=== PATIENT | female | born 1945 | race Caucasian/White ===

== ENCOUNTER 2017-04-21 10:34 | Day surgery (SDC) | payer MEDICARE ==
[~2017-04-21] VITALS: Ht 157.5 cm; Wt 76.4 kg
--- NOTE | ~2017-04-21 | OP ---
PATIENT NAME: AFSANEH ROBISON MEDICAL RECORD: [id number] :47 LOCATION:[facility] ADMISSION DATE: SURGEON: EILEEN CHAVARRIA DO OPERATION DATE: 04/21/17 PROCEDURE: Esophagogastroduodenoscopy with biopsies. INDICATION: Epigastric pain and heart burn. SCOPE: Geenapp video gastroscope. MEDICATIONS: Propofol 200 milligrams IV per anesthesia. ESTIMATED BLOOD LOSS: Minimal. COMPLICATIONS: None. FINDINGS: Informed consent was given. The patient was made comfortable with the above medication. After reaching an adequate level of sedation by slow IV push, the patient was placed on her left side. The endoscope was then advanced under direct visualization through the mouth to the second portion of the duodenum. The upper, middle, and lower thirds of the esophagus appeared normal. At the gastroesophageal junction there was some mild evidence of LA class A reflux induced esophagitis. The endoscope was advanced beyond the gastroesophageal junction and retroflexed to view the cardia where a small sliding hiatal hernia was present. The entire stomach appeared congested and erythematous. In the antrum and prepyloric region there was some erythema and granularity consistent with gastritis. Random biopsies were obtained from the antrum and incisura. The scope was advanced beyond the pylorus and in the duodenum where the bulb and second portion of the duodenum revealed normal mucosa. There was a periampullary diverticulum present, but the ampulla was visualized. The scope was then withdrawn from the patient. The patient tolerated the procedure well. There were no complications. IMPRESSIONS: 1. LA class A reflux induced esophagitis. 2. Small sliding hiatal hernia. 3. Gastritis, biopsies taken. 4. Gastric polyps in the fundus and body of the stomach. A single polypectomy was performed with cold forceps. 5. Duodenal diverticulum. PLAN/RECOMMENDATIONS: 1. Discharge home when recovery parameters are met. 2. Gastroesophageal reflux disease diet and reflux precautions. 3. Continue current medications including Carafate up to four times a day and a proton pump inhibitor once daily. The proton pump inhibitor dosing should be decreased as tolerated down to 20 milligrams daily. If this is not possible 40 milligrams daily is okay. 4. Periodically assess for discontinuation of decreasing of Carafate and proton pump inhibitor. 5. Follow up with gastroenterology clinic as needed. OPERATIVE REPORT [id number] ROBISON,EILEEN BRUNSON DO CC: [id number] DICTATION DATE: 04/21/17 1500 GLASSWARE DEFECT REPAIRER: DM 04/22/17 1221 [facility] 04/21/17 [place] [id number] [place] [address]
[~2017-04-21 10:34] MED LIST: ADVAIR 100/501 DISK INH; ALBUTEROL2.5 MG/3 M INH; ALENDRONATE SOD35 MG PO; CATAPRES0.3 MG PO; NEURONTIN800 MG PO; PERCOCET 10/3251 TA1 PO; PLAQUENIL200 MG PO; SPIRIVA18 MCG INH; STERAPRED DS 1210 MG PO
[2017-04-21] MEDS ORDERED: HYDROCODONE-APA1 TAB PO (12:32)
[2017-04-21] MEDS ORDERED: GLUCOSAMINE & C1 CAP PO (12:33)
[2017-04-21] MEDS ORDERED: POTASSIUM99 M1 PO (12:34)
[2017-04-21] MEDS ORDERED: CALCIUM 500 + D1 TAB PO (12:34)
[2017-04-21] MEDS ORDERED: PREVACID30 MG PO (12:46)
[2017-04-21] MEDS ORDERED: CARAFATE1 G PO (12:46)
[2017-04-21 12:47] VITALS: BP 158/69; Ht 157.5 cm; Wt 76.4 kg
[2017-04-21 13:11] LABS: BASOPHILS 0.1 % (0-2); EOSINOPHILS 0.1 % (0-7); HEMATOCRIT 39.8 % (36.0-48.0); HEMOGLOBIN 13.1 g/dL (12-16); IMMATURE GRANULOCYTES 1.7 % (0-5); LYMPHOCYTES 10.3 % (15-50); MCH 33.2 pg (26.0-34.0); MCHC 32.9 g/dL (31.0-37.0); MCV 100.8 fL (80.0-100.0); MEAN PLATELET VOLUME 9.7 fL (7.4-10.4); MONOCYTES 6.4 % (2-11); NEUTROPHILS 81.4 % (40-80); PLATELET COUNT 180 10x3/uL (130-400); RBC 3.95 10x6/uL (4.00-5.40); RDW 13.2 % (11.5-14.5); WBC 8.3 10x3/uL (4.8-10.8)
[2017-04-21 13:22] LABS: CALC OSMOLALITY 285 mosm/kg (275-300); CALCIUM 8.7 mg/dL (8.5-10.1); CARBON DIOXIDE 29.7 mmol/L (21.0-32.0); CHLORIDE - SERUM 102 mmol/L (98-107); CREATININE - SERUM 0.8 mg/dL (0.6-1.3); GLUCOSE 150 mg/dL (74-106); POTASSIUM - SERUM 4.2 mmol/L (3.5-5.1); SODIUM 141 mmol/L (136-145); UREA NITROGEN 18 mg/dL (7-18); eGFR NON AFRICAN AMERICAN 75 mL/min (90-120)
--- NOTE | 2017-04-21 18:41 | NUR ---
1410 FULL LIQUID DIET TRAY PROVIDED 1440 PIV DC W/CATHETER TIP INTACT 1450 DC HOME VIA WC WITH PT OWN O2 ESCORTED OUT W/ DRIVING
== END 2017-04-21 14:50 | disposition home or self-care (01) ==
LOC: D.OPS 10:34
PROVIDERS: Anesthesiology
DX: R10.13 Epigastric pain (principal); K44.9 Diaphragmatic hernia without obstruction or gangrene; K29.70 Gastritis, unspecified, without bleeding; K31.7 Polyp of stomach and duodenum; F17.200 Nicotine dependence, unspecified, uncomplicated; I25.10 Atherosclerotic heart disease of native coronary artery without angina pectoris; I10 Essential (primary) hypertension; J44.9 Chronic obstructive pulmonary disease, unspecified; Z01.812 Encounter for preprocedural laboratory examination

== ENCOUNTER 2017-05-22 10:01 | Day surgery (SDC) | payer MEDICARE ==
[~2017-05-22] VITALS: Ht 157.5 cm; Wt 77.3 kg
[~2017-05-22 10:01] MED LIST changes: +CALCIUM 500 + D1 TAB PO; +CARAFATE1 G PO; +GLUCOSAMINE & C1 CAP PO; +HYDROCODONE-APA1 TAB PO; +POTASSIUM99 M1 PO; +PREVACID30 MG PO
[2017-05-22] MEDS ORDERED: CYMBALTA30 MG PO (10:54)
[2017-05-22 10:55] VITALS: BP 127/67; Ht 157.5 cm; Wt 77.3 kg
[2017-05-22 11:14] LABS: HEMATOCRIT 38.8 % (36.0-48.0); MCH 33.3 pg (26.0-34.0); MCHC 33.5 g/dL (31.0-37.0); MCV 99.5 fL (80.0-100.0); MEAN PLATELET VOLUME 9.5 fL (7.4-10.4); RBC 3.9 10x6/uL (4.00-5.40); RDW 13.6 % (11.5-14.5); WBC 12.3 10x3/uL (4.8-10.8)
[2017-05-22 11:30] LABS: ANION GAP 10.9 mmol/L (8-16); CARBON DIOXIDE 31.2 mmol/L (21.0-32.0); CREATININE - SERUM 0.9 mg/dL (0.6-1.3); POTASSIUM - SERUM 4.1 mmol/L (3.5-5.1)
--- NOTE | 2017-05-22 14:27 | NUR ---
1350 DISCHARGE INSTRUCTIONS GIVEN. LINZESS PRESCRIPTION GIVEN. PT HAS NO QUESTIONS OR CONCERNS AT THIS TIME. ESCORTED OUT BY VOLUNTEER.
--- NOTE | 2017-05-23 08:48 | OP ---
PATIENT NAME: AFSANEH ROBISON MEDICAL RECORD: [id number] :49 LOCATION:[facility] ADMISSION DATE: SURGEON: EILEEN CHAVARRIA DO DATE OF OPERATION: 05/22/2017 PROCEDURE: Colonoscopy with polypectomy. INDICATIONS FOR PROCEDURE: Include history of colon polyps, constipation. SCOPE: Olympus video pediatric colonoscope. MEDICATIONS: Propofol 350 mg IV per anesthesia. WITHDRAWAL TIME: Seventeen minutes. PREP QUALITY: Excellent. ESTIMATED BLOOD LOSS: Minimal. COMPLICATIONS: None. FINDINGS: Informed consent was given. The patient was made comfortable with the above medication. After reaching an adequate level of sedation by slow IV push, the patient was placed on her left side. A digital rectal examination was performed and was normal. The endoscope was then advanced under direct visualization through the rectum to the cecum with visualization of the appendiceal orifice and ileocecal valve. The scope was slowly withdrawn and mucosa was carefully examined. In the ascending colon, there were 2 polyps, which were benign-appearing and sessile. They measured approximately 2-4 mm in size. They were both removed using hot forceps in 1 piece and completely retrieved. In the transverse colon, there were 2 polyps, which were benign-appearing and sessile. It measured approximately 2-4 mm in size and were removed using hot forceps in 1 piece and completely retrieved. Retroflexion was performed in the rectum with visualization of small nonbleeding internal hemorrhoids. The endoscope was then withdrawn from the patient. The patient tolerated the procedure well and there were no complications. IMPRESSION: 1. Four separate polyps as described above. All were removed with hot forceps. 2. Small nonbleeding internal hemorrhoids. PLAN AND RECOMMENDATIONS: 1. Discharge home when recovery parameters are met. 2. Follow up biopsy specimen results. 3. Continue current medications. 4. High fiber diet. 5. Trial of Linzess 290 mcg daily for chronic idiopathic constipation. 6. Recall colonoscopy in 3 years based on likely tubular adenomas, total in 4. TRANSINT:[id number] Voice Confirmation ID: [id number] DOCUMENT ID: [id number] OPERATIVE REPORT [id number] AFSANEH ROBISON EILEEN CHAVARRIA DO at 0848 CC: [id number] DICTATION DATE: 05/22/17 1258 THEATRE INSTRUCTOR: 05/22/17 1454 [facility] 05/22/17 [facility] [address] [place] [address]
== END 2017-05-22 13:50 | disposition home or self-care (01) ==
LOC: D.OPS 10:01
PROVIDERS: Anesthesiology
DX: D12.2 Benign neoplasm of ascending colon (principal); D12.3 Benign neoplasm of transverse colon; F17.200 Nicotine dependence, unspecified, uncomplicated; I10 Essential (primary) hypertension; M19.90 Unspecified osteoarthritis, unspecified site; Z01.812 Encounter for preprocedural laboratory examination

== ENCOUNTER 2017-07-05 11:31 | Emergency (ER) | payer MEDICARE ==
[2017-05-22 10:55] VITALS: BMI 31.1
[~2017-07-05 11:31] MED LIST changes: +CYMBALTA30 MG PO
== END 2017-07-05 13:31 | disposition home or self-care (01) ==
LOC: D.ER 11:31
DX: S42.301A Unspecified fracture of shaft of humerus, right arm, initial encounter for closed fracture (principal); W01.0XXA Fall on same level from slipping, tripping and stumbling without subsequent striking against object, initial encounter; Y93.89 Activity, other specified; Y92.029 Unspecified place in mobile home as the place of occurrence of the external cause; J44.9 Chronic obstructive pulmonary disease, unspecified; M32.9 Systemic lupus erythematosus, unspecified

== ENCOUNTER 2017-07-07 10:51 | Emergency (ER) | payer MEDICARE ==
[2017-05-22 10:55] VITALS: BMI 31.1
== END 2017-07-07 14:23 | disposition home or self-care (01) ==
LOC: D.ER 10:51
DX: S42.201A Unspecified fracture of upper end of right humerus, initial encounter for closed fracture (principal); W01.0XXA Fall on same level from slipping, tripping and stumbling without subsequent striking against object, initial encounter; Y93.89 Activity, other specified; Y92.029 Unspecified place in mobile home as the place of occurrence of the external cause; F17.200 Nicotine dependence, unspecified, uncomplicated; J44.9 Chronic obstructive pulmonary disease, unspecified; M32.9 Systemic lupus erythematosus, unspecified

== ENCOUNTER → 2017-09-08 13:00 | Outpatient (CLI) | payer MEDICARE ==
[2017-05-22 10:55] VITALS: BMI 31.1
[2017-09-08 14:24] LABS: ANION GAP 13.2 mmol/L (8-16); CALCIUM 9.6 mg/dL (8.5-10.1); CARBON DIOXIDE 29.4 mmol/L (21.0-32.0); CREATININE - SERUM 1.2 mg/dL (0.6-1.3); POTASSIUM - SERUM 4.6 mmol/L (3.5-5.1)
[2017-09-09 08:16] LABS: IMMUNOGLOBULIN E 169 IU/mL (0-100)
--- NOTE | 2017-09-10 13:23 | EC ---
PATIENT:AFSANEH ROBISON DATE OF SERVICE: 09/08/17 SEX: F MEDICAL RECORD: [id number] DATE OF : [birth year] LOCATION:[facility] AGE OF PATIENT: 72 ADMISSION DATE: 09/08/17 REFERRING PHYSICIAN: INTERPRETING PHYSICIAN: YANELY BARONE MD ECHOCARDIOGRAM REPORT ECHO CHARGES 4 ECHO COMPLETE CLINICAL DIAGNOSIS: COPD ECHOCARDIOGRAPHIC MEASUREMENTS (adult normal given) AC root (d.<3.7cm) 3.0 cm LV Septum d (<1.2 cm> 2.1 cm Valve Excursion 1.7 cm LV Septum (systole) 2.6 cm Left Atria (s.<4.0cm> 3.7 cm LVPW d(<1.2cm) 1.8 cm RV (d.<2.3cm) 2.4 cm LVPW (sytole) 2.4 cm LV diastole(<5.6CM) 4.5 cm MV E-F(>70mm/sec) cm LV systole 2.1 cm LVOT Diameter 1.7 cm MV exc.(>10mm) cm Est.ejection fraction (50-75%) % Pericardial Effusion N DOPPLER: LVIT cm/sec A 100 cm/sec E 61.0 cm/sec LA cm/sec RVSP 28.0 mmHg LVOT 107 cm/sec AOP1/2T m/s Asc. Ao 173 cm/sec RVOT 78.0 cm/sec RA cm/sec PA 125 cm/sec AV Gradient Peak 12.0 mmHg AV Mean 6.0 mmHg AV Area 1.5 cm MV Gradient Peak 6.1 mmHg MV Mean 2.1 mmHg MV Area cm COMMENTS: Physical Scientist: Sandrine WEBBOE Guide Plant: 3 Dr. Zelaya TAPE# PACS DATE OF SERVICE: 09/08/2017 Adequate 2D echo, color flow, spectral Doppler and M-Mode. Borderline LVH. LV internal dimensions are normal. Wall motion is normal. EF is greater than 55%. Aortic valve is tricuspid. There is some sclerosis present; however, there is no evidence of stenosis with good valve excursion. Left atrium is normal. Mitral valve shows no prolapse. Mild MR. Right-sided chambers are grossly normal. Mild TR by color flow imaging. TRANSINT:[id number] Voice Confirmation ID: [id number] DOCUMENT ID: [id number] ECHOCARDIOGRAM REPORT [id number] AFSANEH ROBISON GREGORY A MD at 1323 CC: [id number] DICTATION DATE: 09/09/17 0747 DRAFTER DETAIL: 09/09/17 1036 DEP CLI 09/08/17 [place] [address] [place] [id number]
== END | disposition home or self-care (01) ==
LOC: D.ECHO 13:00
PROVIDERS: Internal Medicine Pulmonary Disease
DX: J44.9 Chronic obstructive pulmonary disease, unspecified (principal)

== ENCOUNTER → 2017-12-04 09:42 | Outpatient (CLI) | payer MEDICARE ==
[2017-05-22 10:55] VITALS: BMI 31.1
== END | disposition home or self-care (01) ==
LOC: D.LAB 09:42 → D.CT 10:30
DX: R06.00 Dyspnea, unspecified (principal); R60.0 Localized edema

== ENCOUNTER → 2017-12-31 12:37 | Outpatient (CLI) | payer MEDICARE ==
[2017-05-22 10:55] VITALS: BMI 31.1
== END | disposition home or self-care (01) ==
LOC: D.RAD 12:37
DX: T17.928A Food in respiratory tract, part unspecified causing other injury, initial encounter (principal)

== ENCOUNTER → 2018-07-27 13:58 | Outpatient (CLI) | payer MEDICARE ==
[2017-05-22 10:55] VITALS: BMI 31.1
== END | disposition home or self-care (01) ==
LOC: D.RT 13:58
DX: J44.9 Chronic obstructive pulmonary disease, unspecified (principal)

== ENCOUNTER → 2019-04-21 15:15 | Outpatient (CLI) | payer MEDICARE ==
[2017-05-22 10:55] VITALS: BMI 31.1
== END | disposition home or self-care (01) ==
LOC: D.RT 04-12 09:00
PROVIDERS: ATTEND Internal Medicine Pulmonary Disease
DX: J44.9 Chronic obstructive pulmonary disease, unspecified (principal)

== ENCOUNTER → 2019-04-27 16:21 | Outpatient (CLI) | payer MEDICARE ==
[2017-05-22 10:55] VITALS: BMI 31.1
[~2019-04-27 16:21] MED LIST changes: +COREG 3.1253.125 MG PO; +ELIQUIS5 MG PO; +GLUCOPHAGE500 MG PO; +KLONOPIN1 MG PO; +LANTUS SOL100 UNIT/1 SC; +LASIX40 MG PO; +NEXIUM40 MG PO; +PREDNISONE10 MG PO; +TAPAZOLE 5 MG TA5 MG PO
[2019-04-27 16:30] LABS: BASOPHILS 0.2 % (0-2); EOSINOPHILS 0.9 % (0-7); HEMOGLOBIN 14.1 g/dL (12-16); LYMPHOCYTES 25.4 % (15-50); MCH 32.7 pg (26.0-34.0); MCHC 33.6 g/dL (31.0-37.0); MCV 97.4 fL (80.0-100.0); MEAN PLATELET VOLUME 9.9 fL (7.4-10.4); MONOCYTES 7.4 % (2-11); NEUTROPHILS 64.1 % (40-80); RBC 4.31 10x6/uL (4.00-5.40); RDW 13.7 % (11.5-14.5); WBC 13.2 10x3/uL (4.8-10.8)
[2019-04-27 16:37] LABS: PLATELET COUNT 257 10x3/uL (130-400)
[2019-04-27 16:44] LABS: ALBUMIN 3.8 g/dL (3.4-5.0); ANION GAP 14.9 mmol/L (8-16); BILIRUBIN - TOTAL 0.44 mg/dL (0.2-1.3); CARBON DIOXIDE 29.4 mmol/L (21.0-32.0); CREATININE - SERUM 1.1 mg/dL (0.6-1.3); POTASSIUM - SERUM 4.3 mmol/L (3.5-5.1); PROTEIN - SERUM 7.2 g/dL (6.4-8.2)
== END | disposition home or self-care (01) ==
LOC: D.LABREF 16:21
PROVIDERS: ATTEND Internal Medicine Pulmonary Disease
DX: J18.9 Pneumonia, unspecified organism (principal)

== ENCOUNTER → 2019-05-11 13:40 | Outpatient (CLI) | payer MEDICARE ==
[2017-05-22 10:55] VITALS: BMI 31.1
[~2019-05-11 13:40] MED LIST changes: -COREG 3.1253.125 MG PO; -ELIQUIS5 MG PO; -GLUCOPHAGE500 MG PO; -KLONOPIN1 MG PO; -LANTUS SOL100 UNIT/1 SC; -LASIX40 MG PO; -NEXIUM40 MG PO; -PREDNISONE10 MG PO; -TAPAZOLE 5 MG TA5 MG PO
== END | disposition home or self-care (01) ==
LOC: D.RAD 11:45
PROVIDERS: ATTEND Internal Medicine Pulmonary Disease
DX: J18.9 Pneumonia, unspecified organism (principal); J44.9 Chronic obstructive pulmonary disease, unspecified

== ENCOUNTER 2019-06-28 15:00 | Inpatient (IN) | payer MEDICARE, MEDICAID ==
[~2019-06-28] VITALS: Ht 157.5 cm; Wt 74.5 kg
[2019-06-28] MEDS ORDERED: NEXIUM40 MG PO (15:22)
[2019-06-28 15:46] LABS: BASOPHILS 0.1 % (0-2); EOSINOPHILS 0.2 % (0-7); HEMATOCRIT 41.9 % (36.0-48.0); HEMOGLOBIN 14.1 g/dL (12-16); LYMPHOCYTES 17.4 % (15-50); MCH 32.3 pg (26.0-34.0); MCHC 33.7 g/dL (31.0-37.0); MCV 96.1 fL (80.0-100.0); MEAN PLATELET VOLUME 10.1 fL (7.4-10.4); MONOCYTES 5.6 % (2-11); NEUTROPHILS 75.7 % (40-80); RBC 4.36 10x6/uL (4.00-5.40); RDW 13.2 % (11.5-14.5); WBC 13.3 10x3/uL (4.8-10.8)
[2019-06-28 15:49] LABS: PLATELET COUNT 179 10x3/uL (130-400)
[2019-06-28 16:08] LABS: ALBUMIN 3.4 g/dL (3.4-5.0); ALKALINE PHOSPHATASE 113 U/L (46-116); ALT (SGPT) 20 U/L (10-68); BILIRUBIN - TOTAL 0.51 mg/dL (0.2-1.3); CALC OSMOLALITY 293 mosm/kg (275-300); CALCIUM 8.8 mg/dL (8.5-10.1); CARBON DIOXIDE 31.2 mmol/L (21.0-32.0); CHLORIDE - SERUM 98 mmol/L (98-107); CREATININE - SERUM 1.4 mg/dL (0.6-1.3); POTASSIUM - SERUM 4.4 mmol/L (3.5-5.1); PROTEIN - SERUM 6.7 g/dL (6.4-8.2); SODIUM 138 mmol/L (136-145); UREA NITROGEN 26 mg/dL (7-18); eGFR NON AFRICAN AMERICAN 39 mL/min (90-120)
[2019-06-28 16:09] LABS: GLUCOSE 325 mg/dL (74-106)
[2019-06-28 16:19] LABS: CREATINE KINASE 71 UL (21-215); TROPONIN-I < 0.017 ng/mL (0.000-0.060)
--- NOTE | 2019-06-28 18:58 | NUR ---
REPORT TO LORI ADAMS
[2019-06-28 19:37] LABS: INR 0.91 (0.85-1.17); PROTIME 11.8 SECONDS (11.6-15.0)
[2019-06-28 19:38] LABS: APTT 25.8 SECONDS (22.8-39.4)
--- NOTE | 2019-06-28 19:45 | NUR ---
PT POST CATH LAYING FLAT IN BED WITH TIME ENDING AT 2200. DRESSING TO LEFT FEMORAL C/D/I WITH NO NODULES FELT. PT IS RUNNING 74 CONTROLLED A-FIBB ON TELEMETRY. NORMAL SALINE GOING AT 100ML/HR. NO S/S OF DISTRESS. VITALS STABLE AT THIS TIME. BED LOW CALL LIGHT WITHIN REACH. WILL CONTINUE TO MONITOR.
--- NOTE | 2019-06-28 20:35 | NUR ---
RECIEVED REPORT FROM ANGIE SANDOVAL IN ER. PT ARRIVED TO FLOOR VIA STRECHER FROM ER. PT ALERT AND ORIENTED X4. PT ARRIVED ON 3L O2-98%. PT PLACED ON TELE-109 ST. GAVE PT TURKEY RJWHICH. NO S/S OF DISTRESS AT THIS TIME. PT DENIES ANY PAIN OR FURTHER NEEDS AT THIS TIME. FAMILY AT BEDSIDE. BED LOW CALL LIGHT WITHIN REACH. FALL PERCAUTIONS IN PLACE. WILL CONTINUE TO MONITOR.
[2019-06-28] MEDS ORDERED: LASIX40 MG PO ×2 (20:57)
[2019-06-28] MEDS ORDERED: KLONOPIN1 MG PO (21:06)
[2019-06-29] VITALS: BP 129/64
[2019-06-29 04:31] VITALS: BP 145/81; BMI 30.4
[2019-06-29 05:49] LABS: BASOPHILS 0.3 % (0-2); EOSINOPHILS 1.1 % (0-7); HEMOGLOBIN 12.7 g/dL (12-16); IMMATURE GRANULOCYTES 1.3 % (0-5); LYMPHOCYTES 29.6 % (15-50); MCH 31.9 pg (26.0-34.0); MCHC 33.4 g/dL (31.0-37.0); MCV 95.5 fL (80.0-100.0); MEAN PLATELET VOLUME 10.7 fL (7.4-10.4); MONOCYTES 8.7 % (2-11); PLATELET COUNT 154 10x3/uL (130-400); RBC 3.98 10x6/uL (4.00-5.40); RDW 13.3 % (11.5-14.5)
[2019-06-29 06:03] LABS: WBC 8.7 10x3/uL (4.8-10.8)
[2019-06-29 06:55] LABS: ALBUMIN 3.1 g/dL (3.4-5.0); ALKALINE PHOSPHATASE 95 U/L (46-116); ALT (SGPT) 16 U/L (10-68); BILIRUBIN - TOTAL 0.59 mg/dL (0.2-1.3); CALCIUM 8.6 mg/dL (8.5-10.1); CARBON DIOXIDE 29.9 mmol/L (21.0-32.0); CHLORIDE - SERUM 97 mmol/L (98-107); MAGNESIUM - SERUM 1.9 mg/dL (1.8-2.4); PHOSPHOROUS 3.5 mg/dL (2.5-4.9); POTASSIUM - SERUM 3.8 mmol/L (3.5-5.1); PROTEIN - SERUM 5.9 g/dL (6.4-8.2); SODIUM 135 mmol/L (136-145); UREA NITROGEN 22 mg/dL (7-18)
[2019-06-29 06:56] LABS: CALC OSMOLALITY 278 mosm/kg (275-300); CREATININE - SERUM 0.9 mg/dL (0.6-1.3); GLUCOSE 202 mg/dL (74-106); TROPONIN-I < 0.017 ng/mL (0.000-0.060); eGFR NON AFRICAN AMERICAN 65 mL/min (90-120)
--- NOTE | 2019-06-29 07:15 | NUR ---
REPORT RECEIVED. WILL CONTINUE WITH POC. PT CURRENTLY LYING SEMI FOWLERS. CALL LIGHT W/I REACH. PT IS RESTING AT THIS TIME. RR EVEN AND UNLABORED ON 2L 02. NS INFUSING @50ML/HR VIA R.FOR PIV. NO S/S OF DISTRESS NOTED. PT DENIES ANY NEEDS. WILL CTM.
[2019-06-29 08:00] VITALS: BP 129/75
[2019-06-29] MEDS ORDERED: PREDNISONE10 MG PO (08:38)
--- NOTE | 2019-06-29 08:41 | NUR ---
VERIFIED MED REQ WITH PT WHO STATED "VERONA BEEN TAKING PREDNISONE SINCE 1997, EVERYDAY." UPDATED MED REQ.
--- NOTE | 2019-06-29 10:51 | NUR ---
I have reviewed this patient and I concur with the Shift Assessment completed by the Licensed Practical Nurse today this shift.
[2019-06-29 12:24] VITALS: BP 123/79
[2019-06-29 16:19] VITALS: BP 134/77
--- NOTE | 2019-06-29 17:38 | MORECARE ---
CASE MANAGEMENT DISCHARGE SUMMARY PATIENT: AFSANEH ROBISON UNIT: [id number] ADM DATE: 06/28/19 AGE: 73 : 47 SEX: F ROOM/BED: D.2131 AUTHOR: GERONIMO LAN PHYSICIAN: REFERRING PHYSICIAN: JESSENIA BELL MD DATE OF SERVICE: 06/29/19 Discharge Plan Patient Name: AFSANEH ROBISON Facility: [facility]:[place] : 1945 Planned Disposition: Home with Home Health Anticipated Discharge Date: Discharge Date: Expected LOS: Initial Reviewer: [email or web address] Initial Review Date: 06/29/2019 Generated: 06/29/19 6:37 pm DCPIA - Discharge Planning Initial Assessment Updated by [email or web address]: Telly Wiseman on 06/29/19 5:35 pm * Is the patient Alert and Oriented? Yes * How many steps to enter\exit or inside your home? * PCP DR. YANELY SIMON AT [facility] * Pharmacy [facility] * Preadmission Environment Home with Family * ADLs Independent * Equipment Cane Nebulizer Oxygen Rolling Walker Shower Chair * Other Equipment PORTABLE OXYGEN CONCENTRATOR APRIA - PROVIDER * List name and contact numbers for known caregivers / representatives who currently or will assist patient after discharge: JOURDAN LAM DTR, GOPAL ROBIOSN, SPOUSE, * Verbal permission to speak to the caregivers and representatives has been obtained from the patient. Yes * Community resources currently utilized None * Please name any agencies selected above. NONE * Additional services required to return to the preadmission environment? Yes * Can the patient safely return to the preadmission environment? Yes * Has this patient been hospitalized within the prior 30 days at any hospital? No Patient Name: AFSANEH ROBISON Page [phone] at 1738 All edits/amendments must be made on the electronic document DICTATION DATE: 06/29/191736 3RD PRESSMAN: VIKASH 06/29/191736 RPT#: [id number] DC DATE: STATUS: ADM IN [facility] [address] [place] [address] END OF REPORT
[2019-06-29 17:40] LABS: APPEARANCE CLEAR (CLEAR); BILIRUBIN NEGATIVE (NEGATIVE); COLOR YELLOW (YELLOW); GLUCOSE 1000 mg/dL (NEGATIVE); KETONE NEGATIVE (NEGATIVE); NITRITE NEGATIVE (NEGATIVE); PROTEIN NEGATIVE (NEGATIVE); SPECIFIC GRAVITY 1.015 (1.005-1.020); UROBILINOGEN NORMAL (NORMAL)
--- NOTE | 2019-06-29 17:48 | MORECARE ---
CASE MANAGEMENT DISCHARGE SUMMARY PATIENT: AFSANEH ROBISON UNIT: [id number] ADM DATE: 06/28/19 AGE: 73 : 47 SEX: F ROOM/BED: D.4035 AUTHOR: GERONIMO LAN PHYSICIAN: REFERRING PHYSICIAN: JESSENIA BELL MD DATE OF SERVICE: 06/29/19 Discharge Plan Patient Name: AFSANEH ROBISON Facility: [facility]:[place] : 1945 Planned Disposition: Home with Home Health Anticipated Discharge Date: Discharge Date: Expected LOS: Initial Reviewer: [email or web address] Initial Review Date: 06/29/2019 Generated: 06/29/19 6:47 pm Comments DCP- Discharge Planning Updated by [email or web address]: Telly Wiseman on 06/29/19 4:[address] Patient Name: AFSANEH ROBISON Admission Status: ER Accout number: [id number] Admission Date: 06-28-2019 : 1945 Admission Diagnosis: Attending: JESSENIA BELL Current LOS: 1 Anticipated DC Date: Planned Disposition: Home with Home Health Primary Insurance: [facility] MEDICARE SOLUTIONS PLANNED EXTERNAL PROVIDER: [facility] Discharge Planning Comments: CM RECEIVED ORDER FOR POSSIBLE NEED OF ADAPTIVE EQUIPMENT. CM MET WITH PT, SPOUSE AND DAUGHTER IN ROOM TO DISCUSS DISCHARGE PLANNING AND NEEDS. AFSANEH ROBISON provided verbal consent to discuss current and ongoing needs with/in the presence of: SPOUSE AND DAUGHTER. PT REPORTS LIVING AT HOME INDEPENDENTLY WITH HER SPOUSE, ALSO IN THE HOMEH IS ADULT DAUGHTER. PT HASCANE, ROLLATOR WALKER, TUB SEAT, NEBULIZER AND PORTABLE OXYGEN CONCENTRATOR FROM [employer]. PT HAS NO OUTSIDE SERVICES ASSISTING IN THE HOME. CM DISCUSSED AVAILABILITY OF HOME HEALTH, REHAB SERVICES AND MEDICAL EQUIPMENT. PT AND FAMILY DECLINE REHAB PLACEMENT. PT'S DAUGHER AND SPOUSE REPORT ABILITY TO CONTINUE TO CARE FOR PT AT HOME. PT AND FAMILY WOULD LIKE A WHEELCHAIR FOR PATIENT. CM REVIEWED PHYSICAL THERAPY EVALUATION AND NOTES, INFORMED PT AND FAMILY THAT THERAPY IS NOT RECOMMENDING WHEELCHAIR AND THAT INSURANCE WOULD NEED RECOMMENDATION FROM TREATMENT TEAM FOR WHEELCHAIR AND THAT THE CHART NOTES HAD TO DETAIL THE MEDICAL NEED FOR INSURANCE TO PAY. PT AND FAMILY REPORT UNDERSTANDING. THEY WANT HOME HEALTH FOR PHYSICAL THERAPY; CHOICE LISTING REVIEWED, FAMILY AND PT REQUEST [facility] WITH NO PROVIDER PREFERENCE SECOND CHOICE. CHOICE SABRINA.D PT REPORTS HER SPOUSE WILL PICK HER UP FOR DISCHARGE HOME. PT DECLINED REHAB PLACEMENT, PLANS TO RETURN HOME WITH FAMILY, REQUESTED HOME HEALTH WITH PHYSICAL THERAPY. CM TO [facility]RANGE [facility] WITH PHYSICIAN AGREEMENT AND ORDERS. CM TO CONTINUE TO FOLLOW AND ASSIST IF NEEDED. DISCHARGE ADDRESS IS [address] [place] [address], [place]. [address]. Field Crop Farmworker: Telly Wiseman DCPIA - Discharge Planning Initial Assessment Updated by [id number]: Telly Wiseman on 06/29/19 5:35 pm * Is the patient Alert and Oriented? Yes * How many steps to enter\exit or inside your home? * PCP DR. YANELY SIMON AT [facility] * Pharmacy [facility] * Preadmission Environment Home with Family * ADLs Independent * Equipment Cane Nebulizer Oxygen Rolling Walker Shower Chair * Other Equipment PORTABLE OXYGEN CONCENTRATOR [employer]IA - PROVIDER * List name and contact numbers for known caregivers / representatives who currently or will assist patient after discharge: JOURDAN LAM DTR, GOPAL ROBISON, SPOUSE, * Verbal permission to speak to the caregivers and representatives has been obtained from the patient. Yes * Community resources currently utilized None * Please name any agencies selected above. NONE * Additional services required to return to the preadmission environment? Yes * Can the patient safely return to the preadmission environment? Yes * Has this patient been hospitalized within the prior 30 days at any hospital? No Coverage Notice Reviewer: [email or web address] - Telly Wiseman Notice Issued Date-Time: 06/29/2019 16:20 Notice Type: Patient Choice Letter Notice Delivered To: Patient Relationship to Patient: Academic Affairs Specialist Name: Delivery Method: HAND - Hand Delivered Carlota Days: Prior Verbal Notification: Recipient Understood Notice: Yes Recipient Signature: Yes Med Rec Note Co-signed by Attending: Coverage Notice Comment: 1- [facility] , 2- NO C PROVIDER PREFERENCE Last DP export: 06/29/19 4:38 p Patient Name: AFSANEH ROBISON Page 38542 at 8477 All edits/amendments must be made on the electronic document DICTATION DATE: 06/29/191746 THRESHER BROOMCORN: DM 06/29/191746 RPT#: [id number] DC DATE: STATUS: ADM IN [facility] [address] [place] [address] END OF REPORT
--- NOTE | 2019-06-29 19:31 | NUR ---
REPORT RECIEVED AND ROUNDING COMPLETE. DAUGHTER AT BEDSIDE. PATIENT HAS A RIGHT FOREARM PIV THAT IS RUNNING NORMAL SALINE. PATIENT'S PIV HAS A BLOODY TEGADERM, ASKED PATIENT IF I COULD CHANGE IT AND CLEAN IT UP AND SHE STATED SHE PERFERS I LEAVE IT ALONE BECAUSE SHE WOULD HATE FOR ME TO PULL IT OUT. PATIENT ASKED FOR PAIN MEDICATIONS, TREATED PER MAR. PATIENT STATES SHE HAS GENERALIZED PAIN. PATIENT STATES SHE HAS NO OTHER NEEDS AT THIS. PATIENT IS NOT SHOWING ANY S/SX OF DISTRESS AT THIS TIME. CALL LIGHT WITHIN REACH AND BED IN LOWEST LOCKED POSITION.
[2019-06-29 20:15] VITALS: BP 113/51
[2019-06-30 00:02] VITALS: BP 177/92
--- NOTE | 2019-06-30 04:33 | NUR ---
I have reviewed this patient and I concur with the Shift Assessment completed by the Licensed Practical Nurse today this shift.
[2019-06-30 06:43] LABS: BASOPHILS 0.3 % (0-2); HEMATOCRIT 37.3 % (36.0-48.0); HEMOGLOBIN 12.3 g/dL (12-16); IMMATURE GRANULOCYTES 1.8 % (0-5); LYMPHOCYTES 30.7 % (15-50); MCH 31.6 pg (26.0-34.0); MCV 95.9 fL (80.0-100.0); MEAN PLATELET VOLUME 10.4 fL (7.4-10.4); MONOCYTES 10.1 % (2-11); NEUTROPHILS 56.1 % (40-80); PLATELET COUNT 138 10x3/uL (130-400); RBC 3.89 10x6/uL (4.00-5.40); RDW 13.4 % (11.5-14.5)
[2019-06-30 06:46] LABS: CALCIUM 8.3 mg/dL (8.5-10.1); CARBON DIOXIDE 34.7 mmol/L (21.0-32.0); CHLORIDE - SERUM 101 mmol/L (98-107); CREATININE - SERUM 0.8 mg/dL (0.6-1.3); SODIUM 141 mmol/L (136-145); eGFR NON AFRICAN AMERICAN 75 mL/min (90-120)
[2019-06-30 06:49] LABS: WBC 6.1 10x3/uL (4.8-10.8)
[2019-06-30 06:58] LABS: CALC OSMOLALITY 284 mosm/kg (275-300); GLUCOSE 152 mg/dL (74-106); UREA NITROGEN 15 mg/dL (7-18)
[2019-06-30 08:45] VITALS: BP 126/67
--- NOTE | 2019-06-30 10:42 | NUR ---
PT STATING SHE HAS "A COLD AND NOSE IS STOPPED UP." I VERBALIZED UNDERSTANDING AND STATED I WOULD CALL FLOR VENTURA. CALLED AND SPOKE WITH FLOR VENTURA THAT PT IS WANTING SOMETHING FOR THIS AND SHE VERBALIZED UNDERSTANDING.
--- NOTE | 2019-06-30 11:08 | NUR ---
PT UP WALKING WIHT PHYSICAL THERAPY WIHT WALKER.
--- NOTE | 2019-06-30 11:31 | NUR ---
WILL DO INSULIN TEACHING WITH PT AND PT'S DAUGHTER AT 1630 AND WILL GIVE HANDOUTS. PT'S DAUGHTER NOT AT BEDSIDE AT 1130 ADMINISTRATION AND PT IS FORGETFUL.
--- NOTE | 2019-06-30 11:32 | NUR ---
PT NOT PRODUCING SPUTUM. UNABLE TO COLLECT RESPIRATORY CULTURE.
[2019-06-30 11:45] VITALS: BP 147/80
--- NOTE | 2019-06-30 11:56 | NUR ---
STILL WAITING ON PHARMACRY TO BRING VIOLETE.
--- NOTE | 2019-06-30 12:16 | NUR ---
I have reviewed this patient and I concur with the Shift Assessment completed by the Licensed Practical Nurse today this shift.
--- NOTE | 2019-06-30 13:32 | NUR ---
THIS NURSE CAME BACK FROM BREAK AND THIS NURSE OVERHEAD PT'S DAUGHTER SPEAKING WITH FLIGHT OPERATIONS SPECIALIST STATING "SHE'S(THIS NURSE) ISN'T EVEN TAKING CARE OF MY MOM. SHE IS DOING NOTHING FOR HER HEADACHE. I AM GOING TO REPORT HER!!" I CALLED NEWS CORRESPONDENT BERT AND MARCELINA RN NURSE REGIONAL CLINICAL RESEARCH ASSOCIATE AND STATED TO THEM THE SITAUTION AND THAT PT HAS ALREADY HAD HYDROCODNE THIS AM AND I GAVE PT TYLENOL BEFORE I WENT ON BREAK FOR PT'S HEADACHE AND SHE WAS NOT IN THE ROOM. THEY BOTH VERBALIZED UNDERSTANDING. MARCELINA ADAMS STATES SHE WILL SPEAK WITH PT AND HER DAUGHTER WHEN SHE MAKES ROUNDS.I WENT INTO PT'S ROOM AND THE DAUGHTER WAS NOT THERE AND SPOKE WITH PT AND ASK WHAT WAS GOING ON AND IF SHE IS UPSET AND SHE STATES NO. I ASKED IF HER HEAD WAS STILL HURTING AND SHE STATES HER PAIN LEVEL IS 12 NOW AND IS WORSE. I ASKED WHERE AT EXACTLY ON SHE SAID THE TOP FRONT PART OF HER HEAD AND THAT IT IS ACHING AND POUNDING. I VERBALIZED UNDERSTANDING AND STATED I WILL CALL MD ABOUT THIS. PT VERBALIZED UNDERSTANDING. CALLED AND SPOKE WITH FLOR VENTURA AND SHE STATES TO CALL AND SPEAK WITH DR. BELL. CALLED DR. BELL AND LEFT A VOICEMAIL. IT WAS STATED TO ME DR. BELL IS IN ICU. I CALLED ICU AND ASKED TO SPEAK WITH DR. BELL THEY STATED TO ME DR. BELL STUFF IS THERE BUT HE IS NOT. WILL AWAIT A RETURNED CALL.
--- NOTE | 2019-06-30 13:58 | NUR ---
SPOKE WITH PT'S DAUGHTER ABOUT SITUATION AND THAT I HAVE SEEN HER MOTHER BUT SHE WAS NOT IN THE ROOM WHEN I HAVE AND I ALSO STATED TO HER THAT I AM WAITING A CALL BACK FROM THE DOCTOR. SHE STATES I LEFT HER MOM ON THE SIDE OF THE BED. WHICH I DID NOT. THE DAUGHTER AND CABIN EQUIPMENT SUPERVISOR LEFT ROOM AND WHEN I WENT IN PT'S ROOM SHE WAS ALREADY SITTING ON SIDE OF BED. PT DID NOT REQUEST TO BE MOVED FROM SIDE OF BED. DAUGHTER WOULD NOT LET ME TELL HER THIS AND KEPT CUTTING ME OFF. MARCELINA ADMAS TO SPEAK WITH PT'S DAUGHTER.
--- NOTE | 2019-06-30 14:03 | MORECARE ---
CASE MANAGEMENT DISCHARGE SUMMARY PATIENT: AFSANEH ROBISON UNIT: [id number] ADM DATE: 06/28/19 AGE: 73 : 47 SEX: F ROOM/BED: D.2133 AUTHOR: GERONIMO LAN PHYSICIAN: REFERRING PHYSICIAN: JESSENIA BELL MD DATE OF SERVICE: 06/30/19 Discharge Plan Patient Name: AFSANEH ROBISON Facility: [facility]:[place] : 1945 Planned Disposition: Home with Home Health Anticipated Discharge Date: Discharge Date: Expected LOS: Initial Reviewer: [email or web address] Initial Review Date: 06/29/2019 Generated: 06/30/19 3:02 pm Comments DCP- Discharge Planning Updated by [email or web address]: Anu Thomson on 06/30/19 12:[address] Patient Name: AFSANEH ROBISON Admission Status: ER Accout number: [id number] Admission Date: 06-28-2019 : 1945 Admission Diagnosis: Attending: JESSENIA BELL Current LOS: 2 Anticipated DC Date: Planned Disposition: Home with Home Health Primary Insurance: [facility] MEDICARE SOLUTIONS Discharge Planning Comments: REFERRAL FAXED TO [facility]. Preschool Aide: Anu Thomson DCP- Discharge Planning Updated by [email or web address]: Telly Wiseman on 06/29/19 4:[address] Patient Name: AFSANEH ROBISON Admission Status: ER Accout number: [id number] Admission Date: 06-28-2019 : 1945 Admission Diagnosis: Attending: JESSENIA BELL Current LOS: 1 Anticipated DC Date: Planned Disposition: Home with Home Health Primary Insurance: [facility] MEDICARE SOLUTIONS PLANNED EXTERNAL PROVIDER: [facility] Discharge Planning Comments: CM RECEIVED ORDER FOR POSSIBLE NEED OF ADAPTIVE EQUIPMENT. CM MET WITH PT, SPOUSE AND DAUGHTER IN ROOM TO DISCUSS DISCHARGE PLANNING AND NEEDS. AFSANEH ROBISON provided verbal consent to discuss current and ongoing needs with/in the presence of: SPOUSE AND DAUGHTER. PT REPORTS LIVING AT HOME INDEPENDENTLY WITH HER SPOUSE, ALSO IN THE HOMEH IS ADULT DAUGHTER. PT HASCANE, ROLLATOR WALKER, TUB SEAT, NEBULIZER AND PORTABLE OXYGEN CONCENTRATOR FROM [employer]. PT HAS NO OUTSIDE SERVICES ASSISTING IN THE HOME. CM DISCUSSED AVAILABILITY OF HOME HEALTH, REHAB SERVICES AND MEDICAL EQUIPMENT. PT AND FAMILY DECLINE REHAB PLACEMENT. PT'S DAUGHER AND SPOUSE REPORT ABILITY TO CONTINUE TO CARE FOR PT AT HOME. PT AND FAMILY WOULD LIKE A WHEELCHAIR FOR PATIENT. CM REVIEWED PHYSICAL THERAPY EVALUATION AND NOTES, INFORMED PT AND FAMILY THAT THERAPY IS NOT RECOMMENDING WHEELCHAIR AND THAT INSURANCE WOULD NEED RECOMMENDATION FROM TREATMENT TEAM FOR WHEELCHAIR AND THAT THE CHART NOTES HAD TO DETAIL THE MEDICAL NEED FOR INSURANCE TO PAY. PT AND FAMILY REPORT UNDERSTANDING. THEY WANT HOME HEALTH FOR PHYSICAL THERAPY; CHOICE LISTING REVIEWED, FAMILY AND PT REQUEST [facility] WITH NO PROVIDER PREFERENCE SECOND CHOICE. CHOICE SABRINA.D PT REPORTS HER SPOUSE WILL PICK HER UP FOR DISCHARGE HOME. PT DECLINED REHAB PLACEMENT, PLANS TO RETURN HOME WITH FAMILY, REQUESTED HOME HEALTH WITH PHYSICAL THERAPY. CM TO [facility]RANGE [facility] WITH PHYSICIAN AGREEMENT AND ORDERS. CM TO CONTINUE TO FOLLOW AND ASSIST IF NEEDED. DISCHARGE ADDRESS IS [address] [place] [address]. Preschool Aide: Telly Wiseman DCPIA - Discharge Planning Initial Assessment Updated by [email or web address]: Telly Wiseman on 06/29/19 5:35 pm * Is the patient Alert and Oriented? Yes * How many steps to enter\exit or inside your home? * PCP DR. YANELY SIMON AT [facility] * Pharmacy [facility] * Preadmission Environment Home with Family * ADLs Independent * Equipment Cane Nebulizer Oxygen Rolling Walker Shower Chair * Other Equipment PORTABLE OXYGEN CONCENTRATOR APRIA - PROVIDER * List name and contact numbers for known caregivers / representatives who currently or will assist patient after discharge: JOURDAN LAM DTR, GOPAL ROBISON, SPOUSE, * Verbal permission to speak to the caregivers and representatives has been obtained from the patient. Yes * Community resources currently utilized None * Please name any agencies selected above. NONE * Additional services required to return to the preadmission environment? Yes * Can the patient safely return to the preadmission environment? Yes * Has this patient been hospitalized within the prior 30 days at any hospital? No External Providers External Provider: [facility] Next Contact Date: Service Request Date: Service Type: Resolution: Reviewer: Comments: Coverage Notice Reviewer: [email or web address] - Telly Wiseman Notice Issued Date-Time: 06/29/2019 16:20 Notice Type: Patient Choice Letter Notice Delivered To: Patient Relationship to Patient: Advocacy Director Name: Delivery Method: HAND - Hand Delivered Carlota Days: Prior Verbal Notification: Recipient Understood Notice: Yes Recipient Signature: Yes Med Rec Note Co-signed by Attending: Coverage Notice Comment: 1- [facility] , 2- NO [facility] PROVIDER PREFERENCE Last DP export: 06/29/19 4:48 p Patient Name: AFSANEH ROBISON Page 97136 at 1403 All edits/amendments must be made on the electronic document DICTATION DATE: 06/30/191401 TINNER HELPER: VIKASH 06/30/19 140 RPT#: [id number] [place] DATE: STATUS: ADM IN [facility] [address] [place] [address] END OF REPORT
--- NOTE | 2019-06-30 14:23 | NUR ---
SPOKE WITH PT AND DTR KAMERON REGARDING PAIN MEDICATION FOR HEADACHE AND THE PARAMETERS THAT PAIN MEDICATION IS GIVEN FOR SAFETY OF PATIENT. ALSO DISCUSSED PT USING CALL LIGHT TO AMBULATE WHEN DTR NOT IN ROOM FOR SAFETY. PT AND DTR VOICES UNDERSTANDING.
--- NOTE | 2019-06-30 14:40 | NUR ---
SPOKE WITH DR. BELL AND HE STATES TO GIVE 0.5MG DILAUDID ONE TIME TO SEE IF THAT HELPS PT'S HEADACHE.
[2019-06-30 15:15] VITALS: Ht 157.5 cm; Wt 74.5 kg
[2019-06-30 16:37] VITALS: BP 132/72
--- NOTE | 2019-06-30 16:38 | NUR ---
OT NOTE: PT COMPLETED BUE AROM EX. PT COMPLETED FACE WASH AND HAIR GROOMING WITH SET UP. PT COMPLETED BED MOB TASKS WITH MIN A. PT HAD C/O HEADACHE. PT STATED THAT NURSING WAS AWARE. PTS DAUGHTER CONFIRMED THIS INFORMATION. THANK YOU, JIGNESH IGLESIAS
--- NOTE | 2019-06-30 18:11 | NUR ---
INSULIN ADMINISTRATION AND RETURNED DEMONSTRATION DONE WITH PT AND PT'S DAUGHTER. PT WANTED DAUGHTER TO GIVE INSULIN INJECTION SINCE SHE WILL BE AT HOME TAKING CARE OF HER. TYPE 2 DIABETES, DIABETES EXCHANGE DIET, DIABETES DIET, DIABETES TYPE 2 DISCHARGE INSTRUCTIONS, TRATMENT FOR TYPE 2 DIABETES AND FOOT CARE FOR DIABETICS HANDOUT GIVEN TO PT AND PT'S DAUGHTER. WENT OVER DIABETIC DIET, SLIDING SCALE, HOW TO DRAW UP INSULIN AND INJECT, HOW TO CHECK BLOOD SUGAR AND TIMES TO CHECK BLOOD SUGAR AND WHEN TO GIVE INSULIN WITH PT, PT'S DAUGHTER AND PT'S . PT'S DAUGHTER AND PT SIGNED PAPER SAYING I GAVE THEM DIABETES INSTRUCTIONS.
--- NOTE | 2019-06-30 19:35 | NUR ---
PT A/OX4, DAUGHTER @ BEDSIDE, LEFT PIV INTACT WITH NS @ KVO, O2 @ 2L VIA N/C, NO C/O @ THIS TIME
[2019-06-30 20:00] VITALS: BP 128/77
[2019-07-01] VITALS: BP 141/80
[2019-07-01 05:12] LABS: BASOPHILS 0.1 % (0-2); EOSINOPHILS 0.5 % (0-7); HEMOGLOBIN 12.4 g/dL (12-16); IMMATURE GRANULOCYTES 1.5 % (0-5); LYMPHOCYTES 24.8 % (15-50); MCH 31.8 pg (26.0-34.0); MCHC 33.5 g/dL (31.0-37.0); MCV 94.9 fL (80.0-100.0); MONOCYTES 6.8 % (2-11); NEUTROPHILS 66.3 % (40-80); PLATELET COUNT 155 10x3/uL (130-400); RDW 13.2 % (11.5-14.5)
[2019-07-01 05:22] LABS: WBC 8.5 10x3/uL (4.8-10.8)
[2019-07-01 05:44] LABS: ANION GAP 7.5 mmol/L (8-16); CALCIUM 8.5 mg/dL (8.5-10.1); CARBON DIOXIDE 36.9 mmol/L (21.0-32.0); POTASSIUM - SERUM 3.4 mmol/L (3.5-5.1)
--- NOTE | 2019-07-01 07:27 | NUR ---
REPORT RECIEVED. PT SITTING UP GETTING A RESPRITORY UPDRAFT AT THIS TIME. RR EVEN AND UNLABORED. NO DISTRESS NOTED. A & O. PT HAS A L AC PIV INFUSING NS @ KVO. BED LOCKED AND IN LOWEST POSITION. CALL LIGHT WITHIN REACH. WILL CTM
[2019-07-01 08:34] VITALS: BP 168/85
[2019-07-01 10:11] LABS: THYROGLOBULIN ANTIBODY <1.0 IU/mL (0.0-0.9); THYROID PEROXIDASE ABS 8 IU/mL (0-34)
[2019-07-01 12:30] VITALS: BP 131/78
--- NOTE | 2019-07-01 15:59 | NUR ---
OT NOTE: PT COMPLETED BED MOB WITH SPV. PT COMPLETED ADL MOB WITH SBA. PT COMPLETED TOILETING WITH SBA. PT COMPLETED GROOMING TASKS AT EOB WITH SET UP. PT EXHIBITED INCREASED FUNCTIONAL INDEPENDENCE. DAUGHTER AT BEDSIDE. THANK YOU, JIGNESH IGLESIAS
[2019-07-01 16:50] VITALS: BP 142/78
--- NOTE | 2019-07-01 19:30 | NUR ---
REPORT RECEIVED, WILL CONTINUE POC. PATIENT IS RESTING IN BED WITH EYES CLOSED. NO S/S OF DISTRESS OBSERVED, RR EVEN AND UNLABORED ON 2L O2 VIA NC. CL IN REACH, BED LOCKED AND LOWERED. WILL CTM.
[2019-07-01 20:00] VITALS: BP 152/85
[2019-07-02] VITALS: BP 144/94; BP 152/85
[2019-07-02 04:00] VITALS: BP 121/71
[2019-07-02 06:17] LABS: ANION GAP 7.6 mmol/L (8-16); CALCIUM 8.7 mg/dL (8.5-10.1); POTASSIUM - SERUM 3.6 mmol/L (3.5-5.1)
--- NOTE | 2019-07-02 06:49 | NUR ---
I have reviewed this patient and I concur with the Shift Assessment completed by the Licensed Practical Nurse today this shift.
[2019-07-02 06:51] LABS: BASOPHILS 0.3 % (0-2); EOSINOPHILS 0.9 % (0-7); HEMATOCRIT 38.8 % (36.0-48.0); HEMOGLOBIN 12.4 g/dL (12-16); LYMPHOCYTES 29.5 % (15-50); MEAN PLATELET VOLUME 10.3 fL (7.4-10.4); NEUTROPHILS 59.3 % (40-80); PLATELET COUNT 174 10x3/uL (130-400); RBC 3.88 10x6/uL (4.00-5.40); RDW 13.4 % (11.5-14.5); WBC 7.5 10x3/uL (4.8-10.8)
--- NOTE | 2019-07-02 07:30 | NUR ---
REPORT RECIEVED. PT RESTING QUIETLY. RISE AND FALL OF THE CHEST NOTED. PT HAS A L AC PIV INFUSING NS @ KVO. SHE IS CURRENTLY ON 2L NC. RR EVEN AND UNLABORED. NO DISTRESS NOTED. BED LOCKED AND IN LOWEST POSITION, CALL LIGHT WITHIN REACH. WILL CTM
[2019-07-02 08:03] VITALS: BP 177/102
[2019-07-02] MEDS ORDERED: COREG 3.1253.125 MG PO (10:42)
[2019-07-02] MEDS ORDERED: ELIQUIS5 MG PO ×2 (10:42→10:43)
[2019-07-02] MEDS ORDERED: TAPAZOLE 5 MG TA5 MG PO (10:43)
[2019-07-02] MEDS ORDERED: GLUCOPHAGE500 MG PO (10:44)
[2019-07-02] MEDS ORDERED: LANTUS SOL100 UNIT/1 SC (10:44)
[2019-07-02 11:55] VITALS: BP 138/100
--- NOTE | 2019-07-02 12:50 | NUR ---
DC PAPERWORK GONE OVER AND SIGNED WITH PT. ALL QUESTIONS ANSWERED. TELEMETRY REMOVED AND RETURNED TO DEPUTY SHERIFF COURT SERVICES. PIV REMOVED, CATH TIP FULLY INTACT. PT TRANSPORTED TO FRONT ENTRANCE VIA WHEELCHAIR. ALL VALUBLES REMOVED FROM ROOM UPON DC.
--- NOTE | 2019-07-02 17:31 | MORECARE ---
CASE MANAGEMENT DISCHARGE SUMMARY PATIENT: AFSANEH ROBISON UNIT: [id number] ADM DATE: 06/28/19 AGE: 73 : 47 SEX: F ROOM/BED: D.7711 AUTHOR: GERONIMO LAN PHYSICIAN: REFERRING PHYSICIAN: JESSENIA BELL MD DATE OF SERVICE: 07/02/19 Discharge Plan Patient Name: AFSANEH ROBISON Facility: [facility]:[place] : 1945 Planned Disposition: Home with Home Health Anticipated Discharge Date: Discharge Date: 07/02/2019 Expected LOS: Initial Reviewer: [email or web address] Initial Review Date: 06/29/2019 Generated: 07/02/19 6:31 pm DCP- Discharge Planning Updated by [email or web address]: Anu Thomson on 06/30/19 12:[address] Patient Name: AFSANEH ROBISON Admission Status: ER Accout number: [id number] Admission Date: 06-28-2019 : 1945 Admission Diagnosis: Attending: JESSENIA BELL Current LOS: 2 Anticipated DC Date: Planned Disposition: Home with Home Health Primary Insurance: [facility] MEDICARE SOLUTIONS Discharge Planning Comments: REFERRAL FAXED TO [facility]. Wood Treating Inspector: Anu Thomson DCP- Discharge Planning Updated by [id number]: Telly Wiseman on 06/29/19 4:[address] Patient Name: AFSANEH ROBISON Admission Status: ER Accout number: [id number] Admission Date: 06-28-2019 : 1945 Admission Diagnosis: Attending: JESSENIA BELL Current LOS: 1 Anticipated DC Date: Planned Disposition: Home with Home Health Primary Insurance: [facility] MEDICARE SOLUTIONS PLANNED EXTERNAL PROVIDER: [facility] Discharge Planning Comments: CM RECEIVED ORDER FOR POSSIBLE NEED OF ADAPTIVE EQUIPMENT. CM MET WITH PT, SPOUSE AND DAUGHTER IN ROOM TO DISCUSS DISCHARGE PLANNING AND NEEDS. AFSANEH ROBISON provided verbal consent to discuss current and ongoing needs with/in the presence of: SPOUSE AND DAUGHTER. PT REPORTS LIVING AT HOME INDEPENDENTLY WITH HER SPOUSE, ALSO IN THE HOMEH IS ADULT DAUGHTER. PT HASCANE, ROLLATOR WALKER, TUB SEAT, NEBULIZER AND PORTABLE OXYGEN CONCENTRATOR FROM [employer]. PT HAS NO OUTSIDE SERVICES ASSISTING IN THE HOME. CM DISCUSSED AVAILABILITY OF HOME HEALTH, REHAB SERVICES AND MEDICAL EQUIPMENT. PT AND FAMILY DECLINE REHAB PLACEMENT. PT'S DAUGHER AND SPOUSE REPORT ABILITY TO CONTINUE TO CARE FOR PT AT HOME. PT AND FAMILY WOULD LIKE A WHEELCHAIR FOR PATIENT. CM REVIEWED PHYSICAL THERAPY EVALUATION AND NOTES, INFORMED PT AND FAMILY THAT THERAPY IS NOT RECOMMENDING WHEELCHAIR AND THAT INSURANCE WOULD NEED RECOMMENDATION FROM TREATMENT TEAM FOR WHEELCHAIR AND THAT THE CHART NOTES HAD TO DETAIL THE MEDICAL NEED FOR INSURANCE TO PAY. PT AND FAMILY REPORT UNDERSTANDING. THEY WANT HOME HEALTH FOR PHYSICAL THERAPY; CHOICE LISTING REVIEWED, FAMILY AND PT REQUEST [facility] WITH NO PROVIDER PREFERENCE SECOND CHOICE. CHOICE SABRINA.D PT REPORTS HER SPOUSE WILL PICK HER UP FOR DISCHARGE HOME. PT DECLINED REHAB PLACEMENT, PLANS TO RETURN HOME WITH FAMILY, REQUESTED HOME HEALTH WITH PHYSICAL THERAPY. CM TO ARRANGE [facility] WITH PHYSICIAN AGREEMENT AND ORDERS. CM TO CONTINUE TO FOLLOW AND ASSIST IF NEEDED. DISCHARGE ADDRESS IS [address] [place] [address], [place]. [address]. Wood Treating Inspector: Telly Wiseman DCPIA - Discharge Planning Initial Assessment Updated by [id number]: Telly Wiseman on 06/29/19 5:35 pm * Is the patient Alert and Oriented? Yes * How many steps to enter\exit or inside your home? * PCP DR. YANELY SIMON AT [facility] * Pharmacy [facility] * Preadmission Environment Home with Family * ADLs Independent * Equipment Cane Nebulizer Oxygen Rolling Walker Shower Chair * Other Equipment PORTABLE OXYGEN CONCENTRATOR APRIA - PROVIDER * List name and contact numbers for known caregivers / representatives who currently or will assist patient after discharge: JOURDAN LAM DTR, GOPAL ROBISON, SPOUSE, * Verbal permission to speak to the caregivers and representatives has been obtained from the patient. Yes * Community resources currently utilized None * Please name any agencies selected above. NONE * Additional services required to return to the preadmission environment? Yes * Can the patient safely return to the preadmission environment? Yes * Has this patient been hospitalized within the prior 30 days at any hospital? No Coverage Notice Reviewer: [id number] - Telly Wiseman Notice Issued Date-Time: 06/29/2019 16:20 Notice Type: Patient Choice Letter Notice Delivered To: Patient Relationship to Patient: Escalator Attendant Name: Delivery Method: HAND - Hand Delivered Carlota Days: Prior Verbal Notification: Recipient Understood Notice: Yes Recipient Signature: Yes Med Rec Note Co-signed by Attending: Coverage Notice Comment: 1- [facility] , 2- NO [facility] PROVIDER PREFERENCE Reviewer: [id number] Mildred Thomson Notice Issued Date-Time: 07/02/2019 11:48 Notice Type: IM Discharge Notice Notice Delivered To: Patient Relationship to Patient: Escalator Attendant Name: Delivery Method: HAND - Hand Delivered Carlota Days: Prior Verbal Notification: Recipient Understood Notice: Yes Recipient Signature: Yes Med Rec Note Co-signed by Attending: Coverage Notice Comment: Last DP export: 06/30/19 1:03 p Patient Name: AFSANEH ROBISON Page [id number] at 1731 All edits/amendments must be made on the electronic document DICTATION DATE: 07/02/191729 AIR TWIST OPERATOR: VIKASH 07/02/191729 RPT#: [id number] SC DATE:07/02/19 STATUS: DIS IN [facility] [address] [place] [address] END OF REPORT
== END 2019-07-02 13:23 | disposition home health service (06) | DRG 176 ==
LOC: D.ER 15:00 → D.M2 19:29
PROVIDERS: Family Medicine; ADMIT Internal Medicine Nephrology; ATTEND Internal Medicine Nephrology
DX: I26.99 Other pulmonary embolism without acute cor pulmonale (principal); N17.9 Acute kidney failure, unspecified; J43.9 Emphysema, unspecified; M06.9 Rheumatoid arthritis, unspecified; M32.9 Systemic lupus erythematosus, unspecified; M79.7 Fibromyalgia; M19.90 Unspecified osteoarthritis, unspecified site; M81.0 Age-related osteoporosis without current pathological fracture; E11.65 Type 2 diabetes mellitus with hyperglycemia; E66.9 Obesity, unspecified; Z68.30 Body mass index [BMI] 30.0-30.9, adult

== ENCOUNTER 2021-02-11 10:12 | Inpatient (IN) | payer MEDICARE, MEDICAID ==
[~2021-02-11] VITALS: Ht 157.5 cm; Wt 66.8 kg
[~2021-02-11 10:12] MED LIST changes: +COREG 3.1253.125 MG PO; +ELIQUIS5 MG PO; +GLUCOPHAGE500 MG PO; +KLONOPIN1 MG PO; +LANTUS SOL100 UNIT/1 SC; +LASIX40 MG PO; +NEXIUM40 MG PO; +PREDNISONE10 MG PO; +TAPAZOLE 5 MG TA5 MG PO
[2021-02-11 10:25] LABS: BASOPHILS 0.2 % (0-2); EOSINOPHILS 0.2 % (0-7); HEMATOCRIT 38.1 % (36.0-48.0); HEMOGLOBIN 12.9 g/dL (12-16); IMMATURE GRANULOCYTES 0.6 % (0-5); LYMPHOCYTE ABS# 1.27 10x3/uL (1.18-3.74); LYMPHOCYTES 11.5 % (15-50); MCH 31.4 pg (26.0-34.0); MCHC 33.9 g/dL (31.0-37.0); MCV 92.7 fL (80.0-100.0); MEAN PLATELET VOLUME 10.2 fL (7.4-10.4); MONOCYTES 5.4 % (2-11); NEUTROPHIL ABS# 9.03 10x3/uL (1.56-6.13); NEUTROPHILS 82.1 % (40-80); RBC 4.11 10x6/uL (4.00-5.40); RDW 13.8 % (11.5-14.5)
[2021-02-11 10:26] LABS: PLATELET COUNT 215 10x3/uL (130-400)
[2021-02-11] MEDS ORDERED: COZAAR50 MG (10:37)
[2021-02-11] MEDS ORDERED: CARAFATE1 G PO (10:37)
[2021-02-11] MEDS ORDERED: COZAAR50 MG PO (10:37)
[2021-02-11] MEDS ORDERED: MORPHINE IMMEDI15 MG PO (10:38)
[2021-02-11 10:41] LABS: CALC OSMOLALITY 266 mosm/kg (275-300); CALCIUM 8.7 mg/dL (8.5-10.1); CARBON DIOXIDE 28.8 mmol/L (21.0-32.0); CHLORIDE - SERUM 94 mmol/L (98-107); CREATININE - SERUM 0.9 mg/dL (0.6-1.3); GLUCOSE 130 mg/dL (74-106); POTASSIUM - SERUM 3.5 mmol/L (3.5-5.1); SODIUM 130 mmol/L (136-145); UREA NITROGEN 25 mg/dL (7-18); eGFR NON AFRICAN AMERICAN 65 mL/min (90-120)
[2021-02-11 11:02] LABS: ALBUMIN 2.9 g/dL (3.4-5.0); ALKALINE PHOSPHATASE 58 U/L (30-120); ALT (SGPT) 16 U/L (10-68); BILIRUBIN - TOTAL 0.45 mg/dL (0.2-1.3); CREATINE KINASE 38 UL (21-215); PRO BNP 420 pg/mL (0-125); PROTEIN - SERUM 6.6 g/dL (6.4-8.2)
[2021-02-11 11:03] LABS: TROPONIN-I < 0.017 ng/mL (0.000-0.060)
[2021-02-11 11:15] LABS: CKMB 0.8 U/L (0.0-3.6)
[2021-02-11 11:24] LABS: APTT 29.5 SECONDS (22.8-39.4); INR 0.98 (0.85-1.17)
[2021-02-11 11:27] LABS: D-DIMER-QUANTITATIVE 2.25 ug/mLFEU (0.20-0.54)
[2021-02-11 12:00] VITALS: BP 154/68
[2021-02-11 12:54] VITALS: BP 160/73
--- NOTE | 2021-02-11 12:55 | NUR ---
TO CT VIA STRETCHER WITH GEAR ROOM KEEPER
--- NOTE | 2021-02-11 15:24 | NUR ---
REPORT CALLED TO NELLY ADAMS.
[2021-02-11 15:37] VITALS: BP 146/88
[2021-02-11 16:00] LABS: CKMB 1.7 U/L (0.0-3.6); CREATINE KINASE 50 UL (21-215); TROPONIN-I < 0.017 ng/mL (0.000-0.060)
--- NOTE | 2021-02-11 16:00 | NUR ---
ASSESSMENT PER FLOW SHEET. PATIENT IS WITHOUT DISTRESS.FALL PREVENTION WITH BAND AND FELICIANO MAT. SCD'S PLACED ON PATIENT. IS INSTRUCTED. CALL LIGHT IN REACH.
[2021-02-11 16:16] VITALS: BP 135/78; Ht 157.5 cm; Wt 66.8 kg
[2021-02-11 23:49] LABS: CKMB 3.5 U/L (0.0-3.6); CREATINE KINASE 78 UL (21-215); TROPONIN-I 0.018 ng/mL (0.000-0.060)
[2021-02-12 06:30] LABS: BASOPHILS 0 % (0-2); EOSINOPHILS 0.1 % (0-7); HEMATOCRIT 32.5 % (36.0-48.0); HEMOGLOBIN 10.8 g/dL (12-16); IMMATURE GRANULOCYTES 0.6 % (0-5); LYMPHOCYTE ABS# 1.35 10x3/uL (1.18-3.74); LYMPHOCYTES 17.3 % (15-50); MCH 30.9 pg (26.0-34.0); MCHC 33.2 g/dL (31.0-37.0); MCV 92.9 fL (80.0-100.0); MEAN PLATELET VOLUME 10.3 fL (7.4-10.4); MONOCYTES 7.7 % (2-11); NEUTROPHIL ABS# 5.79 10x3/uL (1.56-6.13); NEUTROPHILS 74.3 % (40-80); PLATELET COUNT 224 10x3/uL (130-400); RDW 13.8 % (11.5-14.5)
[2021-02-12 06:40] LABS: WBC 7.8 10x3/uL (4.8-10.8)
[2021-02-12 06:58] LABS: ALBUMIN 2.7 g/dL (3.4-5.0); ALKALINE PHOSPHATASE 53 U/L (30-120); ALT (SGPT) 16 U/L (10-68); BILIRUBIN - TOTAL 0.19 mg/dL (0.2-1.3); CALC OSMOLALITY 273 mosm/kg (275-300); CALCIUM 7.9 mg/dL (8.5-10.1); CARBON DIOXIDE 24.6 mmol/L (21.0-32.0); CHLORIDE - SERUM 102 mmol/L (98-107); CKMB 3.4 U/L (0.0-3.6); CREATINE KINASE 79 UL (21-215); CREATININE - SERUM 0.7 mg/dL (0.6-1.3); GLUCOSE 106 mg/dL (74-106); MAGNESIUM - SERUM 1.9 mg/dL (1.8-2.4); POTASSIUM - SERUM 4.5 mmol/L (3.5-5.1); PROTEIN - SERUM 5.6 g/dL (6.4-8.2); SODIUM 136 mmol/L (136-145); TROPONIN-I 0.018 ng/mL (0.000-0.060); UREA NITROGEN 17 mg/dL (7-18); eGFR NON AFRICAN AMERICAN 87 mL/min (90-120)
[2021-02-12 10:02] VITALS: BP 149/65
--- NOTE | 2021-02-12 10:02 | NUR ---
ASSESSMENT PER FLOW SHEET. PATIENT IS WITHOUT DISTRESS. ASIST WITH CALL TO DAUGHTER FOR DENTURES PER PATIENT REQUEST.FALL PREVENTION IN PLACE WITH FELICIANO
[2021-02-12 14:07] VITALS: BP 170/92
--- NOTE | 2021-02-12 14:23 | NUR ---
PATIENT HAS PULLED IV OUT WITH CATH TIP INTACT. SHE DOES NOT WANT IV RESITED SHE WANTS TO DC HOME. VERY ANXIOUS ABOUT CALLING FAMILY
[2021-02-12] MEDS ORDERED: OMNICEF300 MG PO (15:13)
[2021-02-12] MEDS ORDERED: ZITHROMAX500 MG PO (15:13)
--- NOTE | 2021-02-12 16:09 | NUR ---
CALL TO FAMILY. FAMILY INFORMED OF DISCHARGE. THEY WILL COME TO PICK HER UP IN A COUPLE HOURS
--- NOTE | 2021-02-12 16:37 | MORECARE ---
CASE MANAGEMENT DISCHARGE SUMMARY PATIENT: AFSANEH ROBISON UNIT: [id number] ADM DATE: 02/11/21 AGE: 75 : 47 SEX: F [facility] AUTHOR: GERONIMO LAN PHYSICIAN: REFERRING PHYSICIAN: MAYRA HOPPER MD DATE OF SERVICE: 02/12/21 Case Management Discharge Planning Summary DCP REVIEW SUMMARY ANTICIPATED D/C DATE: EXPECTED LOS : CASE STATUS: DCP Initiated INITIAL REVIEW: 02/11/2021 INITIAL REVIEWER: Danica Salgado FINAL DISCHARGE DISPOSITION: 01 : Home or Self Care (Routine Discharge) FINAL REVIEWER: FINAL REVIEW DATE: DCP Focus Questions & Answers QUESTION: ANSWER : PATIENT: AFSANEH ROBISON ENCOUNTER: [id number] MEDICAL RECORD#: [id number] ADMISSION DATE: 02/11/2021 DISCHARGE DATE: ATTENDING MD: WARD HOPPER : AGE: 75 MARITAL STATUS: M DC PLAN ID: [id number] FACILITY: [facility] PRINTED ON: 02/12/21 16:37 CT All edits/amendments must be made on the electronic document DICTATION DATE: 02/12/211636 EMERGENCY SERVICE RESTORER: VIKASH 02/12/211636 RPT#: [id number] DC DATE: STATUS: ADM IN [facility] [address] [place] [address] END OF REPORT
--- NOTE | 2021-02-12 16:50 | MORECARE ---
CASE MANAGEMENT DISCHARGE SUMMARY PATIENT: AFSANEH ROBISON UNIT: [id number] ADM DATE: 02/11/21 AGE: 75 : 47 SEX: F ROOM/BED: D.2218 AUTHOR: EDYTA,DOC PHYSICIAN: REFERRING PHYSICIAN: MAYRA HOPPER MD DATE OF SERVICE: 02/12/21 Case Management Discharge Planning Summary COMMENTS ENTERED DATE: 02/12/21 16:34 CT COMMENT TYPE: Discharge Planning REVIEWER: Danica Salgado CM met with patient to complete initial dc planning assessment. CM educated patient on the CM role and verbal consent given by patient to complete assessment. Patient lives at home with her spouse where she stated she is independent with her care. At discharge patient plans to return home and feels this is a safe discharge. CM discussed availability of home health, rehab services, and medical equipment. She stated that she has home health starting on the that was set up by her insurance. She is a patient of Dr Ugarte and uses [facility]. She has home o2, portable and concentrator along with a nebulizer. She gets her O2 supplies from [employer]. She uses a walker and has just bought a scooter. Patient denied known discharge needs at this time. CM will continue to follow and will assist as needed with dc plans/needs. DCP REVIEW SUMMARY ANTICIPATED D/C DATE: EXPECTED LOS : CASE STATUS: DCP Initiated INITIAL REVIEW: 02/11/2021 INITIAL REVIEWER: Danica Salgado FINAL DISCHARGE DISPOSITION: 01 : Home or Self Care (Routine Discharge) FINAL REVIEWER: FINAL REVIEW DATE: DCP Focus Questions & Answers QUESTION: ANSWER : PATIENT: AFSANEH ROBISON ENCOUNTER: [id number] MEDICAL RECORD#: [id number] ADMISSION DATE: 02/11/2021 DISCHARGE DATE: ATTENDING MD: WARD HOPPER : AGE: 75 MARITAL STATUS: M DC PLAN ID: [id number] FACILITY: [facility] PRINTED ON: 02/12/21 16:49 CT All edits/amendments must be made on the electronic document DICTATION DATE: 02/12/211648 PRESS SUPERVISOR: VIKASH 02/12/211648 RPT#: [id number] DC DATE: STATUS: ADM IN [facility] [address] [place] [address] END OF REPORT
--- NOTE | 2021-02-12 17:38 | NUR ---
LEFT UNIT VIA WHEELCHAIR FOR TRANSPORT HOME. DISCHARGE INSTRUCTIONS WITH KHOI GARCIA LPN. PATIENT AND FAMILY STATED UNDERSTANDING
--- NOTE | 2021-02-12 17:50 | MORECARE ---
CASE MANAGEMENT DISCHARGE SUMMARY PATIENT: AFSANEH ROBISON UNIT: [id number] ADM DATE: 02/11/21 AGE: 75 : 47 SEX: F ROOM/BED: D.2218 AUTHOR: EDYTA,DOC PHYSICIAN: REFERRING PHYSICIAN: MAYRA HOPPER MD DATE OF SERVICE: 02/12/21 Case Management Discharge Planning Summary COMMENTS ENTERED DATE: 02/12/21 16:34 CT COMMENT TYPE: Discharge Planning REVIEWER: Danica Salgado CM met with patient to complete initial dc planning assessment. CM educated patient on the CM role and verbal consent given by patient to complete assessment. Patient lives at home with her spouse where she stated she is independent with her care. At discharge patient plans to return home and feels this is a safe discharge. CM discussed availability of home health, rehab services, and medical equipment. She stated that she has home health starting on the that was set up by her insurance. She is a patient of Dr Ugarte and uses [facility]. She has home o2, portable and concentrator along with a nebulizer. She gets her O2 supplies from [employer]. She uses a walker and has just bought a scooter. Patient denied known discharge needs at this time. CM will continue to follow and will assist as needed with dc plans/needs. DCP REVIEW SUMMARY ANTICIPATED D/C DATE: EXPECTED LOS : CASE STATUS: DCP Initiated INITIAL REVIEW: 02/11/2021 INITIAL REVIEWER: Danica Salgado FINAL DISCHARGE DISPOSITION: 01 : Home or Self Care (Routine Discharge) FINAL REVIEWER: FINAL REVIEW DATE: DCP Focus Questions & Answers QUESTION: ANSWER : PATIENT: AFSANEH ROBISON ENCOUNTER: [id number] MEDICAL RECORD#: [id number] ADMISSION DATE: 02/11/2021 DISCHARGE DATE: 02/12/2021 ATTENDING MD: WARD HOPPER : AGE: 75 MARITAL STATUS: M DC PLAN ID: [id number] FACILITY: [facility] PRINTED ON: 02/12/21 17:50 CT All edits/amendments must be made on the electronic document DICTATION DATE: 02/12/211749 LIMOUSINE RENTAL CLERK: VIKASH 02/12/211749 RPT#: [id number] DC DATE:02/12/21 STATUS: DIS IN [facility] [address] [place] [address] END OF REPORT
== END 2021-02-12 17:39 | disposition home or self-care (01) | DRG 190 ==
LOC: D.ER 10:12 → D.MS 14:55
PROVIDERS: Family Medicine; ADMIT Family Medicine; ATTEND Family Medicine
DX: J44.1 Chronic obstructive pulmonary disease with (acute) exacerbation (principal); J18.9 Pneumonia, unspecified organism; J96.11 Chronic respiratory failure with hypoxia; J44.0 Chronic obstructive pulmonary disease with (acute) lower respiratory infection; I10 Essential (primary) hypertension; M06.9 Rheumatoid arthritis, unspecified; M32.9 Systemic lupus erythematosus, unspecified; M19.90 Unspecified osteoarthritis, unspecified site